=== PATIENT | female | born 1935 ===

== ENCOUNTER 2021-10-16 14:29 | Inpatient (IN) | payer MEDICARE, MEDICAID ==
[~2021-10-16] VITALS: Ht 152.4 cm; Wt 38.0 kg
[2021-10-16 15:57] LABS: Eosinophils # (auto) 0.1 10 ^3/uL (0-0.8); Hemoglobin 13.6 g/dL (12.2-16.2); Monocytes # (auto) 0.7 10 ^3/uL (0-1.3); Monocytes % (auto) 8.4 % (0.0-12.0); Nucleated Red Blood Cells % 0.1 %
[2021-10-16 15:59] LABS: Basophils # (auto) 0.1 10 ^3/uL (0-0.2); Basophils % (auto) 1.3 % (0.0-2.0); Eosinophils % (auto) 1.6 % (0.0-7.0); Hematocrit 40.1 % (36.0-46.0); Lymphocytes # (auto) 3.3 10 ^3/uL (0.4-5.4); Lymphocytes % (auto) 40.8 % (10.0-50.0); Mean Corpuscular Hemoglobin 34.7 pg (28.0-32.0); Mean Corpuscular Hgb Conc. 33.9 g/dL (32.0-36.0); Mean Corpuscular Volume 102.4 fL (80.0-100.0); Neutrophils # (auto) 3.9 10 ^3/uL (1.6-8.6); Neutrophils % (auto) 47.9 % (37.0-80.0); Red Blood Cells 3.91 10^6/uL (4.0-5.20); Red Cell Distribution Width 12.6 % (11.8-14.3); White Blood Cell 8.1 10^3/uL (4.4-10.8)
[2021-10-16 16:12] LABS: Albumin 3.2 g/dL (3.4-5.0); Calcium 8.5 mg/dL (8.5-10.1); Magnesium 2.7 mg/dL (1.6-2.6); Potassium 3.9 mmol/L (3.5-5.1)
[2021-10-16 16:17] LABS: Bilirubin, Total 0.8 mg/dL (0.2-1.0); Total Protein 7.5 g/dL (6.4-8.2)
[2021-10-16] MEDS ORDERED: NITROGLYCERIN 0.4 MG SL TAB SL PRN (18:45)
[2021-10-16] MEDS ORDERED: MORPHINE SULFATE INJECTION 2 MG/ML SYRG IV PRN ×2 (18:45→19:15)
[2021-10-16] MEDS ORDERED: cefTRIAXone 1GM/50ML D5W 50 ML IV ONE (19:15)
[2021-10-16] MEDS ORDERED: DEXTROSE (50%) 50ML SYRG IV PRN (19:15)
[2021-10-16] MEDS ORDERED: DOCUSATE SOD 100 MG CAP PO PRN (19:15)
[2021-10-16] MEDS ORDERED: ONDANSETRON HCL 4 MG/2 ML VIAL IV PRN (19:15)
[2021-10-16 19:59] LABS: Folate (Folic Acid) 7.58 ng/mL (5.38-24)
[2021-10-16 21:39] VITALS: BP 142/85
[2021-10-16 21:44] LABS: Cholesterol 284 mg/dL (< 200); HDL Cholesterol 53 mg/dL (40-59); LDL Cholesterol 176 mg/dL (< 100); Triglycerides 215 mg/dL (< 150)
[2021-10-16] MEDS: ATORVASTATIN 20 MG TAB PO SCH (21:46)
[2021-10-16] MEDS: InsuLIN REG 1unit/0.01ml Soln (100units/ml) SC SCH (21:46)
[2021-10-16] MEDS: ACCU-CHEK COMFORT CURVE STRIP VI SCH (21:46)
[2021-10-17] MEDS: POTASSIUM CHL 10MEQ/50ML 50 ML IV SCH ×4 (00:30→21:20)
[2021-10-17 05:00] VITALS: BP 180/77
[2021-10-17 05:52] LABS: Basophils # (auto) 0.1 10 ^3/uL (0-0.2); Eosinophils # (auto) 0 10 ^3/uL (0-0.8); Eosinophils % (auto) 0.1 % (0.0-7.0); Lymphocytes # (auto) 1.8 10 ^3/uL (0.4-5.4)
[2021-10-17 06:00] LABS: Basophils % (auto) 0.5 % (0.0-2.0); Hematocrit 41.5 % (36.0-46.0); Hemoglobin 13.9 g/dL (12.2-16.2); Lymphocytes % (auto) 13.9 % (10.0-50.0); Mean Corpuscular Hemoglobin 34.5 pg (28.0-32.0); Mean Corpuscular Hgb Conc. 33.5 g/dL (32.0-36.0); Mean Corpuscular Volume 103.1 fL (80.0-100.0); Monocytes % (auto) 7.5 % (0.0-12.0); Nucleated Red Blood Cells % 0.2 %; Red Blood Cells 4.03 10^6/uL (4.0-5.20); Red Cell Distribution Width 12.6 % (11.8-14.3); White Blood Cell 12.9 10^3/uL (4.4-10.8)
[2021-10-17 06:11] LABS: INR 1.03 (0.9-1.15); Partial Thromboplastin Time 29.2 sec (23.6-33.0)
[2021-10-17 06:16] LABS: Potassium 3.3 mmol/L (3.5-5.1)
[2021-10-17 06:29] LABS: Albumin 3.2 g/dL (3.4-5.0); BUN/Creatinine Ratio 14.4; Bilirubin, Total 0.8 mg/dL (0.2-1.0); Calcium 9.3 mg/dL (8.5-10.1); Magnesium 2.2 mg/dL (1.6-2.6); Phosphorus 3.1 mg/dL (2.5-4.90); Total Protein 7.9 g/dL (6.4-8.2); Uric Acid 7.6 mg/dL (2.6-6.0)
[2021-10-17] MEDS: ACCU-CHEK COMFORT CURVE STRIP VI SCH ×4 (07:12→21:46)
[2021-10-17] MEDS: InsuLIN REG 1unit/0.01ml Soln (100units/ml) SC SCH ×5 (07:12→22:00)
[2021-10-17 09:00] VITALS: BP 157/76
[2021-10-17] MEDS ORDERED: POTASSIUM CHL 10MEQ/50ML 50 ML IV SCH (11:15)
[2021-10-17] MEDS: ENOXAPARIN SOD 30 MG/0.3 ML SYRINGE SC SCH (11:44)
[2021-10-17] MEDS: ASPirin 81 mg TAB PO SCH (11:44)
[2021-10-17] MEDS: cefTRIAXone 1GM/50ML D5W 50 ML IV SCH (11:52)
[2021-10-17] MEDS: CALCIUM W/VIT D (600MG/400IU) TAB PO SCH ×2 (12:52→17:45)
[2021-10-17 13:00] VITALS: BP 131/64
[2021-10-17 17:14] VITALS: BP 166/93
[2021-10-17] MEDS: ATORVASTATIN 20 MG TAB PO SCH (21:46)
[2021-10-17 22:00] VITALS: BP 150/78
[2021-10-18 05:00] VITALS: BP 162/77
[2021-10-18 06:17] LABS: Urine Bacteria FEW /hpf (None Seen); Urine Blood 2+ /uL (Negative); Urine Specific Gravity 1.015 (1.001-1.035); Urine WBC 3 /hpf (0 - 5)
[2021-10-18] MEDS: hydrALAZINE HCL 20 MG/ML VL IV PRN (06:28)
[2021-10-18] MEDS: InsuLIN REG 1unit/0.01ml Soln (100units/ml) SC SCH ×3 (06:49→22:14)
[2021-10-18] MEDS ORDERED: ADENOSINE 33 MG in GIVE UN-DILUTED 0 ML IV STA ×2 (08:29→08:39)
[2021-10-18 09:00] VITALS: BP 155/82
[2021-10-18] MEDS: ASPirin 81 mg TAB PO SCH (10:57)
[2021-10-18] MEDS: CALCIUM W/VIT D (600MG/400IU) TAB PO SCH ×2 (10:57→18:49)
[2021-10-18] MEDS: ENOXAPARIN SOD 30 MG/0.3 ML SYRINGE SC SCH (11:20)
[2021-10-18] MEDS: cefTRIAXone 1GM/50ML D5W 50 ML IV SCH (11:21)
[2021-10-18 13:00] VITALS: BP 150/70
[2021-10-18 17:00] VITALS: BP 164/81
[2021-10-18 22:00] VITALS: BP 181/88
[2021-10-18] MEDS: ACCU-CHEK COMFORT CURVE STRIP VI SCH (22:00)
[2021-10-18] MEDS: ATORVASTATIN 20 MG TAB PO SCH (22:15)
[2021-10-19 05:00] VITALS: BP 219/97
[2021-10-19 06:01] LABS: BUN/Creatinine Ratio 19.4; Calcium 8.9 mg/dL (8.5-10.1); Magnesium 2.9 mg/dL (1.6-2.6); Potassium 4.1 mmol/L (3.5-5.1)
[2021-10-19] MEDS: ACCU-CHEK COMFORT CURVE STRIP VI SCH ×2 (06:50→12:57)
[2021-10-19] MEDS: InsuLIN REG 1unit/0.01ml Soln (100units/ml) SC SCH ×2 (06:52→12:56)
[2021-10-19] MEDS: hydrALAZINE HCL 20 MG/ML VL IV PRN ×2 (06:52→16:05)
[2021-10-19] MEDS: cefTRIAXone 1GM/50ML D5W 50 ML IV SCH (08:47)
[2021-10-19] MEDS: CALCIUM W/VIT D (600MG/400IU) TAB PO SCH (08:48)
[2021-10-19 09:00] VITALS: BP 194/90
[2021-10-19 13:00] VITALS: BP 137/57
[2021-10-19] MEDS: ASPirin 81 mg TAB PO SCH (13:03)
[2021-10-19] MEDS: ENOXAPARIN SOD 30 MG/0.3 ML SYRINGE SC SCH (13:04)
[2021-10-19] MEDS ORDERED: FURO40TA4 PO (14:26)
[2021-10-19] MEDS ORDERED: POTA-180 PO (14:26)
[2021-10-19 17:00] VITALS: BP 169/80
== END 2021-10-19 19:01 | disposition home health service (06) | DRG 291 ==
LOC: ER 14:29 → TELE-CENTR 18:47
PROVIDERS: ADMIT Hospitalist; ATTEND Internal Medicine
DX: I13.0 Hypertensive heart and chronic kidney disease with heart failure and stage 1 through stage 4 chronic kidney disease, or unspecified chronic kidney disease (principal); I50.43 Acute on chronic combined systolic (congestive) and diastolic (congestive) heart failure; N39.0 Urinary tract infection, site not specified; N17.9 Acute kidney failure, unspecified; R62.7 Adult failure to thrive; E11.22 Type 2 diabetes mellitus with diabetic chronic kidney disease; I25.5 Ischemic cardiomyopathy; N18.32 Chronic kidney disease, stage 3b; E11.65 Type 2 diabetes mellitus with hyperglycemia; E78.5 Hyperlipidemia, unspecified; E87.6 Hypokalemia; Z20.822 Contact with and (suspected) exposure to COVID-19; I25.10 Atherosclerotic heart disease of native coronary artery without angina pectoris; Z86.73 Personal history of transient ischemic attack (TIA), and cerebral infarction without residual deficits; Z95.1 Presence of aortocoronary bypass graft; Z99.3 Dependence on wheelchair; Z90.49 Acquired absence of other specified parts of digestive tract
CPT/HCPCS: 36415; 70450; 71045; 72100; 73502; 78452; 80048; 80053; 80061; 81001; 82607; 82746; 82962; 83036; 83735; 83880; 84100; 84443; 84484; 84550; 85025; 85379; 85610; 85730; 87040; 87086; 87088; 87186; 87426; 87804; 93005; 93017; 93306; 93886; 93971; 96365; 97116; 97163; 97530; G0378; J0153; J0696; J1815

== ENCOUNTER 2021-10-21 15:44 | Inpatient (IN) | payer MEDICARE, MEDICAID ==
[~2021-10-21] VITALS: Ht 154.9 cm; Wt 41.1 kg
[~2021-10-21 15:44] MED LIST: FURO40TA4 PO; POTA-180 PO
[2021-10-21] MEDS ORDERED: SODIUM CHLORIDE 0.9% 1,000 ML IV ONE (16:15)
[2021-10-21 16:45] LABS: Basophils # (auto) 0.1 10 ^3/uL (0-0.2); Basophils % (auto) 0.5 % (0.0-2.0); Eosinophils # (auto) 0 10 ^3/uL (0-0.8); Eosinophils % (auto) 0.4 % (0.0-7.0); Hematocrit 42.6 % (36.0-46.0); Hemoglobin 14.5 g/dL (12.2-16.2); Lymphocytes # (auto) 2.1 10 ^3/uL (0.4-5.4); Lymphocytes % (auto) 21.6 % (10.0-50.0); Mean Corpuscular Hemoglobin 34.5 pg (28.0-32.0); Mean Corpuscular Hgb Conc. 33.9 g/dL (32.0-36.0); Mean Corpuscular Volume 101.8 fL (80.0-100.0); Monocytes # (auto) 1.1 10 ^3/uL (0-1.3); Monocytes % (auto) 11.5 % (0.0-12.0); Neutrophils # (auto) 6.3 10 ^3/uL (1.6-8.6); Nucleated Red Blood Cells % 0.1 %; Red Blood Cells 4.19 10^6/uL (4.0-5.20); Red Cell Distribution Width 12.5 % (11.8-14.3); White Blood Cell 9.5 10^3/uL (4.4-10.8)
[2021-10-21 16:56] LABS: INR 0.98 (0.9-1.15)
[2021-10-21 17:01] LABS: Albumin 2.8 g/dL (3.4-5.0); Calcium 8.8 mg/dL (8.5-10.1)
[2021-10-21 17:05] LABS: BUN/Creatinine Ratio 25.8; Bilirubin, Total 0.6 mg/dL (0.2-1.0); Total Protein 7.4 g/dL (6.4-8.2)
[2021-10-21] MEDS ORDERED: ASPirin 81 mg TAB PO ONE ×2 (19:15)
[2021-10-21] MEDS ORDERED: MORPHINE SULFATE INJECTION 2 MG/ML SYRG IV PRN (19:30)
[2021-10-21] MEDS ORDERED: NITROGLYCERIN 0.4 MG SL TAB SL PRN (19:30)
[2021-10-21 20:04] LABS: Urine Bacteria NONE SEEN /hpf (None Seen); Urine Blood 1+ /uL (Negative); Urine Hyaline Cast FEW /lpf (0 - 2); Urine WBC <1 /hpf (0 - 5)
[2021-10-21 20:41] LABS: Alcohol, Urine < 3.0 mg/dL (0-10); Amphetamine Screen, Urine NEGATIVE (NEGATIVE); Barbiturate Scree,Urine NEGATIVE (NEGATIVE); Benzodiazephine Screen, Urine NEGATIVE (NEGATIVE); Cannabinoid Screen, Urine NEGATIVE (NEGATIVE); Cocaine Screen, Urine NEGATIVE (NEGATIVE); Opiate Scree,Urine NEGATIVE (NEGATIVE); Phencyclidine Screen, Urine NEGATIVE (NEGATIVE)
[2021-10-21] MEDS: D5W/SOD CHLO 0.9% 1,000 ML IV SCH (22:30)
[2021-10-22] MEDS: HYDROcodone-ACET 5/325MG TAB PO PRN
[2021-10-22 11:28] LABS: INR 1.02 (0.9-1.15); Partial Thromboplastin Time 26.3 sec (23.6-33.0)
[2021-10-22] MEDS ORDERED: amLODIPine BESYLATE 5 MG TAB PO ONE (11:30)
[2021-10-22] MEDS ORDERED: LABETALOL HCL 5 MG/ML 4ML SYRINGE IV PRN (11:30)
[2021-10-22 11:38] LABS: Phosphorus 4.2 mg/dL (2.5-4.90)
[2021-10-22] MEDS ORDERED: DOCUSATE SOD 100 MG CAP PO PRN (14:45)
[2021-10-22] MEDS ORDERED: HYDROcodone-ACET 5/325MG TAB PO ONE (14:45)
[2021-10-22] MEDS ORDERED: LORazepam 0.5 MG TAB PO PRN (14:45)
[2021-10-22] MEDS ORDERED: FAMOTIDINE (10MG/ML) 2ML VL IV ONE (14:45)
[2021-10-22] MEDS ORDERED: ONDANSETRON HCL 4 MG/2 ML VIAL IV PRN (14:45)
[2021-10-22] MEDS ORDERED: MORPHINE SULFATE INJECTION 2 MG/ML SYRG IV PRN (14:45)
[2021-10-22] MEDS ORDERED: IPRATROPIUM BROM 0.5 MG/2.5ML INH SOL NEB ONE (14:45)
[2021-10-22] MEDS: D5W/SOD CHLO 0.9% 1,000 ML IV SCH (14:57)
[2021-10-22] MEDS ORDERED: FUROSEMIDE 20 MG/2 ML VIAL IV SCH (18:00)
[2021-10-22] MEDS ORDERED: IPRATROPIUM BROM 0.5 MG/2.5ML INH SOL NEB SCH (18:00)
[2021-10-22] MEDS ORDERED: IPRATROPIUM BROM 0.5 MG/2.5ML INH SOL NEB PRN (18:00)
[2021-10-22] MEDS: hydrALAZINE HCL 20 MG/ML VL IV PRN (18:29)
[2021-10-22] MEDS ORDERED: HYDROcodone-ACET 5/325MG TAB PO PRN (20:45)
[2021-10-22] MEDS ORDERED: POTASSIUM CHL 20 Meq TABLET PO SCH (22:00)
[2021-10-22 23:00] VITALS: BP 128/65
[2021-10-22] MEDS: ATORVASTATIN 20 MG TAB PO SCH (23:10)
[2021-10-22] MEDS: METOPROLOL TARTRATE 25 MG TAB PO SCH (23:11)
[2021-10-23 04:46] VITALS: BP 145/77
[2021-10-23] MEDS: HYDROcodone-ACET 5/325MG TAB PO PRN (05:24)
[2021-10-23 05:41] LABS: BUN/Creatinine Ratio 24.2; Calcium 8.8 mg/dL (8.5-10.1); Potassium 3.7 mmol/L (3.5-5.1)
[2021-10-23 08:00] VITALS: BP 188/94
[2021-10-23] MEDS: ASPirin 81 mg TAB PO SCH (08:56)
[2021-10-23] MEDS: METOPROLOL TARTRATE 25 MG TAB PO SCH ×2 (08:57→21:54)
[2021-10-23] MEDS: ENOXAPARIN SOD 30 MG/0.3 ML SYRINGE SC SCH (08:57)
[2021-10-23] MEDS: amLODIPine BESYLATE 5 MG TAB PO SCH (08:57)
[2021-10-23 12:00] VITALS: BP 158/63
[2021-10-23] MEDS ORDERED: SOD CHL 0.45% 1,000 ML IV ONE (13:45)
[2021-10-23 16:00] VITALS: BP 166/73
[2021-10-23] MEDS: hydrALAZINE HCL 20 MG/ML VL IV PRN (19:24)
[2021-10-23] MEDS: ATORVASTATIN 20 MG TAB PO SCH (21:54)
[2021-10-23 22:00] VITALS: BP 123/64
[2021-10-24 05:00] VITALS: BP 123/68
[2021-10-24 07:11] LABS: Calcium 8.2 mg/dL (8.5-10.1)
[2021-10-24 07:12] LABS: BUN/Creatinine Ratio 21.7
[2021-10-24 09:00] VITALS: BP 153/68
[2021-10-24] MEDS: METOPROLOL TARTRATE 25 MG TAB PO SCH ×2 (09:21→21:56)
[2021-10-24] MEDS: ASPirin 81 mg TAB PO SCH (09:22)
[2021-10-24] MEDS: amLODIPine BESYLATE 5 MG TAB PO SCH (09:22)
[2021-10-24] MEDS: ENOXAPARIN SOD 30 MG/0.3 ML SYRINGE SC SCH (09:22)
[2021-10-24] MEDS ORDERED: FAMOTIDINE (10MG/ML) 2ML VL IV SCH (10:00)
[2021-10-24 13:00] VITALS: BP 140/65
[2021-10-24] MEDS: ATORVASTATIN 20 MG TAB PO SCH (21:56)
[2021-10-24 22:00] VITALS: BP 176/74
[2021-10-24] MEDS: hydrALAZINE HCL 20 MG/ML VL IV PRN (23:36)
[2021-10-25 05:00] VITALS: BP 163/80
[2021-10-25 09:00] VITALS: BP 159/70
[2021-10-25] MEDS: METOPROLOL TARTRATE 25 MG TAB PO SCH ×2 (09:48→21:29)
[2021-10-25] MEDS: ASPirin 81 mg TAB PO SCH (09:48)
[2021-10-25] MEDS: amLODIPine BESYLATE 5 MG TAB PO SCH (09:50)
[2021-10-25] MEDS: ENOXAPARIN SOD 30 MG/0.3 ML SYRINGE SC SCH (09:51)
[2021-10-25] MEDS ORDERED: ASPI1TAB20 PO (11:12)
[2021-10-25] MEDS ORDERED: AMLO-496 PO (11:12)
[2021-10-25] MEDS ORDERED: MET25T PO (11:12)
[2021-10-25] MEDS ORDERED: ATOR20TA50 PO (11:12)
[2021-10-25 12:48] VITALS: BP 139/62
[2021-10-25 16:42] VITALS: BP 154/74
[2021-10-25] MEDS: ATORVASTATIN 20 MG TAB PO SCH (21:28)
[2021-10-25 22:00] VITALS: BP 139/64
[2021-10-26 05:00] VITALS: BP 159/79
[2021-10-26 08:51] VITALS: BP 139/64
[2021-10-26 09:00] VITALS: BP 159/66
[2021-10-26] MEDS: ASPirin 81 mg TAB PO SCH (09:58)
[2021-10-26] MEDS: ENOXAPARIN SOD 30 MG/0.3 ML SYRINGE SC SCH (09:59)
[2021-10-26] MEDS: METOPROLOL TARTRATE 25 MG TAB PO SCH (09:59)
[2021-10-26] MEDS: amLODIPine BESYLATE 5 MG TAB PO SCH (10:00)
[2021-10-26 13:00] VITALS: BP 143/68
== END 2021-10-26 14:45 | disposition home health service (06) | DRG 64 ==
LOC: ER 15:44 → EDBD 15:44 → TELE 19:25 → TELE-WESTW 10-22 22:30
PROVIDERS: ADMIT Hospitalist; ATTEND Internal Medicine
PROC: 05HB33Z Insertion of Infusion Device into Right Basilic Vein, Percutaneous Approach (ICD-10-PCS; principal; 2021-10-22)
PROC: B54MZZA Ultrasonography of Right Upper Extremity Veins, Guidance (ICD-10-PCS; 2021-10-22)
DX: I63.9 Cerebral infarction, unspecified (principal); G93.41 Metabolic encephalopathy; I21.A1 Myocardial infarction type 2; N17.0 Acute kidney failure with tubular necrosis; I16.1 Hypertensive emergency; N39.0 Urinary tract infection, site not specified; I13.0 Hypertensive heart and chronic kidney disease with heart failure and stage 1 through stage 4 chronic kidney disease, or unspecified chronic kidney disease; I69.354 Hemiplegia and hemiparesis following cerebral infarction affecting left non-dominant side; N18.4 Chronic kidney disease, stage 4 (severe); I50.42 Chronic combined systolic (congestive) and diastolic (congestive) heart failure; Z66 Do not resuscitate; R62.7 Adult failure to thrive; I25.5 Ischemic cardiomyopathy; E11.22 Type 2 diabetes mellitus with diabetic chronic kidney disease; E11.42 Type 2 diabetes mellitus with diabetic polyneuropathy; E78.5 Hyperlipidemia, unspecified; E86.1 Hypovolemia; Z20.822 Contact with and (suspected) exposure to COVID-19; I25.10 Atherosclerotic heart disease of native coronary artery without angina pectoris; I25.2 Old myocardial infarction; Z79.82 Long term (current) use of aspirin; Z79.899 Other long term (current) drug therapy; Z82.49 Family history of ischemic heart disease and other diseases of the circulatory system; Z83.3 Family history of diabetes mellitus; Z95.1 Presence of aortocoronary bypass graft; Z90.49 Acquired absence of other specified parts of digestive tract
CPT/HCPCS: 36415; 70450; 70551; 71045; 78582; 80048; 80053; 80061; 80307; 81001; 82565; 82728; 83735; 83880; 84100; 84443; 84484; 85025; 85379; 85610; 85730; 87040; 87086; 87426; 92610; 93005; 95819; 96360; 97110; 97530; 99291; G0378; J3490